=== PATIENT | female | born 1975 | race Caucasian/White ===

== ENCOUNTER 2016-05-15 15:21 | Emergency (ER) | payer MEDICAID ==
--- NOTE | 2016-05-15 15:40 | CPEKG ---
Heart Rate: 103 RR Interval: 583 P-R Interval: 128 QRSD Interval: 76 QT Interval: 336 QTC Interval: 440 P [place]: 64 QRS [place]: 40 T Wave [place]: 21 EKG Severity - OTHERWISE NORMAL ECG - EKG Impression: SINUS TACHYCARDIA Electronically Signed By: Natacha Tabor 15-May-2016 21:36:37
[2016-05-15 15:42] VITALS: TEMP 97.7
--- NOTE | 2016-05-15 15:44 | EDPHY ---
H & P Time Seen by Provider: 05/15/16 15:39 HPI/ROS: CHIEF COMPLAINT: Chest pain HISTORY OF PRESENT ILLNESS: The patient is a 40 year old female presenting with chest pain that woke her at 3am. The pain moves up and down her sternum. She describes it as an ache that she attributed to heart burn. She took TUMS and sodium bicarbonate and found no relief. Her pain is worse with lying flat and deep inhalation. The pain has remained constant throughout the day. She had 1 episode of emesis today. Her pain is unchanged with food intake and exertion. She denies fever, cough, or recent sickness. No lower extremity pain or swelling. Cardiac risk factors negative. Nonsmoker; no family history; no hypertension, diabetes or hypercholesterolemia. REVIEW OF SYSTEMS: Aside from elements discussed in the HPI, a comprehensive 10-point review of systems was reviewed and is negative. Past Medical/Surgical History: Left eye palsy, Malaria. PSH: Dental surgery, Hernia repair Social History: Nonsmoker. Smoking Status: Never smoked Physical Exam: General Appearance: Alert, pleasant and talkative Eyes: Pupils equal and round, no conjunctival pallor or injection ENT, Mouth: Mucous membranes moist Neck: Normal inspection Respiratory: Lungs are clear to auscultation Cardiovascular: Regular rate and rhythm, No murmur, gallop or rub Gastrointestinal: Abdomen is soft and non-tender Neurological: A&O, nonfocal, normal gait Skin: Warm and dry, no rash Extremities: Nontender, no pedal edema Psychiatric: Mood and affect normal Constitutional: Initial Vital Signs Temperature (C) 36.5 C 05/15/16 15:37 Heart Rate 102 H 05/15/16 15:37 Respiratory Rate 16 05/15/16 15:37 Blood Pressure 126/96 H 05/15/16 15:37 O2 Sat (%) 94 05/15/16 15:37 O2 Delivery Mode Room Air Allergies/Adverse Reactions: down goose feathers Allergy (Uncoded 05/15/16 15:42) Home Medications: Medication Instructions Recorded Hydrocodone/APAP 5/325 [[place] 1 - 2 tab PO Q4H PRN #10 tab 05/15/16 5/325] Ondansetron Odt [Zofran Odt 4 mg 4 mg PO Q4 PRN #6 tab 05/15/16 (*)] Pantoprazole Sodium [Protonix 40mg 40 mg PO DAILY #20 tab 05/15/16 (*)] Medical Decision Making - Diagnostics EKG Interpretation: The 12 lead EKG was interpreted by myself. See hard copy and/or "tracemaster" electronic copy for interpretation: Sinus tachycardia, rate 103. No ST or T segment changes. Imaging: Study: X-ray of the chest was obtained. Results: No acute disease. Images were interpreted by the radiologist, Dr. Higginbotham. I viewed the images myself on the PACS system. ED Course/Re-evaluation: The patient was placed on a traffic monitor specialist. EKG shows sinus tachycardia. Plan for GI cocktail. Chest x-ray is pending. 4:35 p.m.: I reevaluated the patient, she is feeling better after GI cocktail. This patient presents with atypical chest pain. After careful consideration and evaluation, I find no evidence of acute coronary syndrome. The patient has no risk factors for coronary disease, normal EKG and normal studies. In addition, I feel that I can safely exclude pulmonary embolism, with normal vital signs, normal oxygen saturation and normal D-dimer. In addition there is no evidence of pneumothorax, pneumonia, aortic dissection. Clinically, her symptoms most consistent with acute gastritis/esophagitis. This is supported by her feeling better after a GI cocktail. Will place her on Protonix as well as Zofran and Vicodin. She will follow up with her primary care physician in 24 -48 hours for re-evaluation. Differential Diagnosis: Differential diagnosis includes though it is not limited to pneumonia, pneumothorax, pulmonary embolism, aortic dissection, pericarditis, acute coronary syndrome. - Data Points Laboratory Results: Laboratory Results 05/15/16 15:42 05/15/16 15:42 Medications Given: Discontinued Medications Ketorolac Tromethamine (Toradol) 30 mg IVP EDNOW ONE Stop: 05/15/16 17:12 Last Admin: 05/15/16 17:25 Dose: 30 mg Miscellaneous Medication (Gi Cocktail) 45 ml PO EDNOW ONE Stop: 05/15/16 16:06 Last Admin: 05/15/16 16:12 Dose: 45 ml Pantoprazole Sodium (Protonix) 40 mg PO EDNOW ONE Stop: 05/15/16 17:11 Last Admin: 05/15/16 17:25 Dose: 40 mg Departure - Departure Disposition: Home, Routine, Self-Care Clinical Impression: Esophagitis Chest pain Qualifiers: Chest pain type: unspecified Qualifier Code: (R07.9) Chest pain, unspecified Condition: Good Instructions: Hydrocodone/Acetaminophen (By mouth), Ondansetron (By mouth), Pantoprazole (By mouth), Antacid, Calcium and Magnesium (By mouth), Chest Pain ( ED), Esophagitis (ED) Additional Instructions: Clear liquid diet for the next 24 hours. [place] diet after that with gradual diet advancement as tolerated. Take Mylanta before meals and at bed time. Take Protonix as prescribed. Followup with your primary care physician within 24-48 hours. Referrals: Oracio Faustin DO [Doctor of Osteopathy] - As per Instructions (Primary Care Physician Referral) Prescriptions: Hydrocodone/APAP 5/325 [[place] 5/325] 1 - 2 tab PO Q4H PRN #10 tab PRN Reason: Pain, Moderate Pantoprazole Sodium [Protonix 40mg (*)] 40 mg PO DAILY #20 tab Ondansetron Odt [Zofran Odt 4 mg (*)] 4 mg PO Q4 PRN #6 tab PRN Reason: Nausea Report Scribed for: Natacha Tabor Report Scribed by: Kanika Pacheco Date of Report: 05/15/16 Time of Report: 15:43 Physician Review and Approval Statement: 05/15/16 15:43 Portions of this note were transcribed by a certified medical aide. I personally performed the history, physical exam, and medical decision-making; and confirmed the accuracy of the information in the transcribed note.
[2016-05-15 15:58] LABS: % IMMATURE GRANULYOCYTES 0.4 % (0.0-1.1); ABSOLUTE IMMATURE GRANULOCYTES 0.05 10^3/uL (0.00-0.10); ADD DIFF? NO; ADD MORPH? NO; ADD SCAN? NO; ATYPICAL LYMPHOCYTE FLAG 0 (0-99); FRAGMENT RBC FLAG 0 (0-99); HEMATOCRIT 39.9 % (38.0-47.0); HEMOGLOBIN 13.6 g/dL (12.6-16.3); LEFT SHIFT FLG 0 (0-99); LIPEMIA HEMOLYSIS FLAG 90 (0-99); MEAN CELL HEMOGLOBIN 30.4 pg (27.9-34.1); MEAN CELL HEMOGLOBIN CONCENTR. 34.1 g/dL (32.4-36.7); MEAN CELL VOLUME 89.3 fL (81.5-99.8); MEAN PLATELET VOLUME 9.7 fL (8.7-11.7); PLATELET CLUMPS FLAG 10 (0-99); PLATELET COUNT 256 10^3/uL (150-400); RED BLOOD CELL COUNT 4.47 10^6/uL (4.18-5.33); RED CELL DISTRIBUTION WIDTH 12.3 % (11.5-15.2)
[2016-05-15] MEDS ORDERED: MAALOX/LIDO/HYOSC GI COCKTAIL 55 ML BOTTLE PO ONE (16:05)
[2016-05-15 16:15] VITALS: PULSE 87
[2016-05-15 16:16] LABS: ALANINE AMINOTRANSFERASE 57 IU/L (9-52); ALKALINE PHOSPHATASE 52 IU/L (38-126); ANION GAP 11 mEq/L (8-16); ASPARTATE AMINOTRANSFERASE 40 IU/L (14-46); BILIRUBIN,TOTAL 0.8 mg/dL (0.1-1.4); BILIRUBIN-CONJUGATED 0.1 mg/dL (0.0-0.5); BILIRUBIN-UNCONJUGATED 0.7 mg/dL (0.0-1.1); CALCIUM 9.6 mg/dL (8.5-10.4); CARBON DIOXIDE 26 mEq/l (22-31); CHLORIDE 101 mEq/L (97-110); GLOMERULAR FILTRATION RATE > 60; GLUCOSE 98 mg/dL (70-100); POTASSIUM 4.1 mEq/L (3.5-5.2); SODIUM 138 mEq/L (134-144); TOTAL PROTEIN 6.9 g/dL (6.3-8.2)
--- NOTE | 2016-05-15 16:22 | DX ---
PA and lateral chest History: Vomiting, chest pain. Comparison: None available. Findings: The lungs are clear. There is no pneumothorax or pleural effusion. The heart and pulmona ry vasculature are normal. Mild degenerative change is present in the spine. Impression: No acute findings in the chest.
[2016-05-15] MEDS ORDERED: PANTOPRAZOLE SODIUM 40 MG TAB PO ONE (17:10)
[2016-05-15] MEDS ORDERED: KETOROLAC 30 MG/1 ML SDV IVP ONE (17:11)
[2016-05-15 17:16] VITALS: BP 111/78; RESP 18; O2SAT 98
== END 2016-05-15 17:30 | disposition home or self-care (01) ==
DX: K20.9 Esophagitis, unspecified (principal)
CPT/HCPCS: 96374; J1885